=== PATIENT | female | born 1945 | race Hispanic/Latino ===

== ENCOUNTER 2018-03-17 13:55 | Outpatient (CLI) | payer MEDICARE, MEDICAID | END 2018-03-17 13:56 | disposition home or self-care (01) | LOC: BICMAMMO 13:55 | PROVIDERS: ATTEND Family Medicine | DX: Z12.31 Encounter for screening mammogram for malignant neoplasm of breast (principal); R92.1 Mammographic calcification found on diagnostic imaging of breast | CPT/HCPCS: 77063; 77067 ==

== ENCOUNTER 2019-03-21 10:14 | Outpatient (CLI) | payer MEDICARE, MEDICAID ==
--- NOTE | 2019-03-21 11:39 | MMO ---
Bilateral MAMMO Bilat Screen [facility]. CLINICAL HISTORY: Patient is 73 years old and is seen for screening. The patient has no family history of breast cancer. The patient has no personal history of cancer. VIEWS: The views performed were: bilateral craniocaudal with tomosynthesis and bilateral mediolateral oblique with tomosynthesis. FILMS COMPARED: The present examination has been compared to prior imaging studies performed at [facility] on 10/12/2012, 09/05/2015, 01/27/2017 and 03/17/2018. MAMMOGRAM FINDINGS: There are scattered fibroglandular densities. Benign calcifications are noted bilaterally. There are no suspicious masses, suspicious calcifications, or new areas of architectural distortion. IMPRESSION: THERE IS NO MAMMOGRAPHIC EVIDENCE OF MALIGNANCY. A ROUTINE FOLLOW-UP MAMMOGRAM IN 1 YEAR IS RECOMMENDED. THE RESULTS OF THIS EXAM WERE SENT TO THE PATIENT. ACR BI-RADS Category 2 - Benign finding MAMMOGRAPHY NOTE: 1. A negative mammogram report should not delay a biopsy if a dominant of clinically suspicious mass is present. 2. Approximately 10% to 15% of breast cancers are not detected by mammography. 3. Adenosis and dense breasts may obscure an underlying neoplasm. Reported by: TERRANCE VERMA MD Electonically Signed: [id number]
== END 2019-03-21 10:15 | disposition home or self-care (01) ==
LOC: BICMAMMO 10:14
PROVIDERS: ATTEND Family Medicine
DX: Z12.31 Encounter for screening mammogram for malignant neoplasm of breast (principal)
CPT/HCPCS: 77063; 77067

== ENCOUNTER 2019-07-25 20:09 | Inpatient (IN) | payer MEDICARE, MEDICAID ==
[2019-07-25 21:34] LABS: #Basophils 0.1 thou/uL (0.0-0.2); #Eosinphils 0.3 thou/uL (0.0-0.7); #Lymphocytes 1.8 thou/uL (1.20-3.40); #Monocytes 0.8 thou/uL (0.11-0.59); #Neutrophils 8.9 thou/uL (1.40-6.50); %Basophils 0.7 % (0.0-1.0); %Eosinophils 2.3 % (0.0-10.0); %Monocytes 6.5 % (0.0-10.0); %Neutrophils 75.5 % (42.0-75.0); Hemoglobin 12.3 g/dL (12.0-16.0); Mean Corpuscular HGB CONC 33.3 g/dL (32.0-36.0); Mean Corpuscular Hemoglobin 29.8 pg (27.0-31.0); Mean Corpuscular Volume 89.5 fL (78.0-98.0); Mean Platelet Volume 8.9 fL (7.4-10.4); Platelet Count 216 thou/uL (130-400); Red Blood Cell (RBC) Count 4.12 mill/uL (4.20-5.40); White Blood Cell (WBC) Count 11.7 thou/uL (4.8-10.8)
--- NOTE | 2019-07-25 21:47 | CT ---
CT HEAD WITHOUT IV CONTRAST COMPARISON: None HISTORY: Headache. TECHNIQUE: Axial CT imaging at 5 mm intervals from vertex through skull base without contrast FINDINGS: Minimal areas of diminished attenuation are seen in the periventricular white matter which are nonspe cific but likely reflective of mild chronic small vessel ischemic changes. There is no evidence of an acute infarction, hemorrhage, mass effect, or midline shift. The ventricular system is normal in s ize, shape, and position. Visualized paranasal sinuses are clear. Osseous structures appear intact. IMPRESSION: 1. No acute intracranial abnormality demonstrated. 2. Mild chronic small vessel ischemic changes.
[2019-07-25 22:02] LABS: ALT (SGPT) 10 U/L (8-55); AST (SGOT) 28 U/L (5-34); Albumin 3.8 g/dL (3.4-4.8); Alkaline Phosphatase 85 U/L (40-110); Anion Gap 12 mmol/L (10-20); BUN (Urea Nitrogen) 15 mg/dL (9.8-20.1); Bilirubin, Total 0.4 mg/dL (0.2-1.2); Calc. Creatinine Clearance 0 mL/min (70-130); Calcium 9.1 mg/dL (7.8-10.44); Carbon Dioxide 26 mmol/L (23-31); Chloride 105 mmol/L (98-107); Estimated GFR-MDRD 49; Globulin 3.2 g/dL (2.4-3.5); Glucose 122 mg/dL (83-110); Potassium 4.9 mmol/L (3.5-5.1); Sodium 138 mmol/L (136-145)
[2019-07-25] MEDS ORDERED: Labetalol HCl 100 MG/20 ML VIAL ONE (22:21)
[2019-07-25] MEDS ORDERED: Acetaminophen 325 MG TAB PO PRN (23:11)
[2019-07-25] MEDS ORDERED: Ondansetron ODT 4 MG TAB PO PRN (23:11)
[2019-07-25] MEDS ORDERED: Labetalol HCl 100 MG/20 ML VIAL SLOW IVP PRN (23:14)
[2019-07-25] MEDS ORDERED: Aspirin Chewable 81 MG TAB ONE (23:19)
[2019-07-25] MEDS ORDERED: Zolpidem Tartrate 5 MG TAB PO PRN (23:26)
--- NOTE | 2019-07-25 23:46 | HP ---
CHIEF COMPLAINT: Elevated blood pressure and headache. HISTORY OF PRESENT ILLNESS: This patient is a 73-year-old female who follows with Dr. Tenzin Jacinto. The patient has longstanding history of hypertension. She reported on Wednesday, she experienced some right arm pain transiently that resolved. At that time, she did not check her blood pressure. However, today she reported having significant throbbing type headache. She called her daughter, ultimately checked her blood pressure and it was significantly elevated and she subsequently came to the emergency department where she has continued to have elevated blood pressure readings. She took aspirin and her evening dose of carvedilol around 0600 hours this evening when she noted the elevated blood pressure, not feeling well. States she has never had any issues like this before. REVIEW OF SYSTEMS: She denies nausea, vomiting, lightheadedness, chest pains, blurred vision, or shortness of breath. She does report some discomfort in the posterior left thigh area, which has been going on this afternoon. Otherwise, all systems reviewed were negative except for the pertinent positives mentioned in the history of present illness. PAST MEDICAL HISTORY: Notable for hypertension, hyperlipidemia, insomnia, gout, GERD, and the patient also has some type of inhaler nasal spray, but says she did not have allergic rhinitis or asthma, believes it was for postnasal drip. PAST SURGICAL HISTORY: Bilateral knee replacements and wisdom tooth extraction. FAMILY HISTORY: Mother had some type of abdominal cancer. Her father had hypertension and when she was young. She thinks he may have had some sepsis related to infection in his legs, but she is not sure. SOCIAL HISTORY: Denies alcohol, tobacco, or drugs. She is a 14 year . 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 HOME MEDICATIONS: She takes carvedilol 12.5 mg b.i.d. She also takes something for cholesterol, Ambien for sleep, something for gout and something for reflux, but she does not know the names of these medications. ALLERGIES: NONE. PHYSICAL EXAMINATION: VITAL SIGNS: Most recent documented BP 199/106, pulse 81, respirations 20, O2 saturation 94% on room air while examining the patient. Rechecked it, it is slightly higher than these numbers. GENERAL APPEARANCE: Awake, alert, pleasant, cooperative, in no distress. HEENT: CHRISTINA. No OP lesions. NECK: Supple and symmetric. HEART: Regular rate and rhythm. LUNGS: Clear bilaterally with no wheezes or rales. ABDOMEN: Soft, nontender, and nondistended. Positive bowel sounds. No masses. No organomegaly. EXTREMITIES: Trace edema of the ankles, otherwise no significant cyanosis, clubbing, or edema. PSYCH: Normal affect and behavior. NEURO: The patient appears to be cognitively intact. Her cranial nerves are intact. She has spontaneous movement in all extremities with no focal deficits. LABORATORY DATA: White count 11.7, hemoglobin 12.3, platelets 216. Sodium 138, potassium 4.91, chloride 105, CO2 of 26, BUN 15, creatinine is 1.1, glucose 122, calcium 9.1, AST 28, ALT 10. Troponin is less than 0.013. Albumin 3.2. CT of the brain is negative except for some mild chronic small vessel disease. IMPRESSION AND PLAN: 1. Hypertensive emergency. Given the actual values and the symptomatic headache and the pain in the arm, she has had labetalol and nitroglycerin paste ordered in the emergency department and that is anticipated to occur shortly once we get her blood pressure under better control in the emergency department. Anticipate admitting her to telemetry. We will continue with nitroglycerin paste and p.r.n. labetalol and continue with her home Coreg. Depending on the clinical course, may consider upping that dose a little bit. The patient reports that she had a stress test and cardiac workup this year with Dr. Jacinto that was negative. About a month ago, she was having some cough. At that time, had EKG and labs done, all of which were normal. Therefore, I do not anticipate a significant cardiac workup as long as her blood pressure will stabilize. There does not appear to be any specific underlying source of the spike in the blood pressure. 2. History of hyperlipidemia. We will start her medications once they are known. 3. Gout. We will resume home medications once known. 4. Insomnia. We will go ahead and give her a dose or order some p.r.n. Ambien for her at night as that is what she takes at home. 5. Gastroesophageal reflux disease. Keep her on a PPI while she is here. Job ID: [id number]
[2019-07-25] MEDS ORDERED: Nitroglycerin 2% Ointment 1 INCH/1 GM Packet ONE (23:58)
[2019-07-26 01:00] LABS: Troponin I Less than 0.010 ng/mL (< 0.028)
[2019-07-26 02:15] VITALS: BMI 38.2
[2019-07-26 03:45] LABS: #Eosinphils 0.3 thou/uL (0.0-0.7); #Lymphocytes 1.7 thou/uL (1.20-3.40); #Monocytes 0.8 thou/uL (0.11-0.59); #Neutrophils 7.7 thou/uL (1.40-6.50); %Basophils 0.3 % (0.0-1.0); %Eosinophils 2.6 % (0.0-10.0); %Lymphocytes 16.3 % (21.0-51.0); %Monocytes 7.4 % (0.0-10.0); %Neutrophils 73.4 % (42.0-75.0); Hemoglobin 11.2 g/dL (12.0-16.0); Mean Corpuscular HGB CONC 33.4 g/dL (32.0-36.0); Mean Corpuscular Hemoglobin 29.8 pg (27.0-31.0); Mean Corpuscular Volume 89.1 fL (78.0-98.0); Mean Platelet Volume 8.5 fL (7.4-10.4); Platelet Count 182 thou/uL (130-400); RBC Distribution Width 12.9 % (11.5-14.5); Red Blood Cell (RBC) Count 3.76 mill/uL (4.20-5.40); White Blood Cell (WBC) Count 10.5 thou/uL (4.8-10.8)
[2019-07-26 04:04] LABS: Anion Gap 12 mmol/L (10-20); BUN (Urea Nitrogen) 14 mg/dL (9.8-20.1); Calc. Creatinine Clearance 76 mL/min (70-130); Calcium 8.8 mg/dL (7.8-10.44); Carbon Dioxide 27 mmol/L (23-31); Chloride 106 mmol/L (98-107); Estimated GFR-MDRD 55; Glucose 99 mg/dL (83-110); Potassium 3.6 mmol/L (3.5-5.1); Sodium 141 mmol/L (136-145)
[2019-07-26 04:11] LABS: Troponin I Less than 0.010 ng/mL (< 0.028)
[2019-07-26] MEDS ORDERED: Carvedilol 6.25 MG TAB PO SCH (08:00)
[2019-07-26 08:25] VITALS: TEMP 97.4
[2019-07-26] MEDS ORDERED: Enoxaparin Sodium 40 MG/0.4 ML SYRINGE SC SCH (09:00)
[2019-07-26] MEDS ORDERED: FLU VACC TS2019-20(65YR UP)/PF 180 MCG/0.5 ML SYRINGE IM ONE (09:00)
[2019-07-26] MEDS ORDERED: Nitroglycerin 2% Ointment 1 INCH/1 GM Packet TOP SCH (09:00)
[2019-07-26] MEDS ORDERED: Prevnar 13-Val Conj/PF 0.5 ML SYRINGE IM ONE (09:00)
[2019-07-26 14:07] VITALS: BP 149/63
--- NOTE | 2019-07-26 16:39 | DIS ---
DATE OF ADMISSION: 07/25/2019 DATE OF DISCHARGE: 07/26/2019 DISCHARGE DIAGNOSES: Hypertensive urgency, anemia. SECONDARY DISCHARGE DIAGNOSES: Gout, gastroesophageal reflux disease, hyperlipidemia. CONSULTATIONS: None. PROCEDURES: None. BRIEF HISTORY OF PRESENT ILLNESS: This is a 73-year-old female who presented to the emergency room with some right arm pain that transiently resolved. The patient also reported severe headache, and whenever she checked her blood pressure, it was noted to be elevated. On arrival to the emergency room, her blood pressure was 180/77. The patient was given 20 mg of IV labetalol, nitroglycerin paste, aspirin with improvement in her blood pressure. The patient had an EKG, which showed normal sinus rhythm. Labs showed a white count of 11.7. Initial troponin was negative. The patient had a CT scan of her head, which was normal. The patient was admitted for further workup. HOSPITAL COURSE: Hypertensive urgency: The patient reports compliant with her coreg 6.125 mg bid daily. Her coreg was increased to 12.5 mg twice daily. With this, her blood pressure improved to systolic of 112 to 130. The patient denied any headaches, chest pain, shortness of breath on the day of discharge. Three sets of troponins were normal. The patient states that she sometimes eat more salt than she should and was advised on reducing her salt intake. The patient will be discharged and we should follow up with her PCP in a week for further reassessment of her blood pressure. Anemia: The patient had hemoglobin of 11.2 on 07/26. Her hemoglobin was normal , however, the day before. This may just be iatrogenic from phlebotomy. The patient to have her CBC repeated as an outpatient and consider anemia workup as an outpatient. The patient states she had a colonoscopy in the past, which was normal. Leukocytosis: The patient had a white blood cell count of 11.7 on 07/25, which resolved to 10.5 on the day of discharge. The patient denied any fevers or chills. DISCHARGE PHYSICAL EXAMINATION: VITAL SIGNS: Temperature 97.4, heart rate 67, respiratory rate 18, O2 saturations 96% on room air, blood pressure 149/63. GENERAL: The patient is alert, awake, and oriented x3. CVS: Regular rate and rhythm with no murmurs, rubs, or gallops. LUNGS: Clear to auscultation bilaterally. ABDOMEN: Positive bowel sounds. Soft, nontender, nondistended. EXTREMITIES: No edema. PERTINENT LABORATORY DATA: CBC on 07/25 : white count of 11.7, which improved to 10.5 on 07/26; hemoglobin was 12.3, which dropped to 11.2 on 07/26. Rest of CBC unremarkable. BMP 07/26: normal. LFTS: were normal. Troponin-I : 0.013, 0.010, 0.010. PERTINENT IMAGING STUDIES: CT Brain : no acute disease. Mild chronic small-vessel ischemic changes. DISCHARGE CONDITION: Stable. DISPOSITION: Home. ACTIVITY: As tolerated. DIET: Heart healthy diet. DISCHARGE INSTRUCTIONS: The patient should follow up with PCP in a week and have her blood pressure re-evaluated for further adjustment. She should also have a repeat CBC to see if her anemia is still persistent. DISCHARGE MEDICATIONS: 1. Coreg 12.5 mg p.o. b.i.d. 2. Ropinirole 0.5 mg one tablet p.o. q.p.m. p.r.n. 3. Pravastatin 20 mg p.o. daily. 4. Allopurinol 300 mg p.o. daily. Job ID: [id number] [facility]
== END 2019-07-26 15:25 | disposition home or self-care (01) | DRG 305 ==
LOC: ERS 20:09 → 2NO 23:12
PROVIDERS: ADMIT Internal Medicine; ATTEND Internal Medicine
DX: I16.0 Hypertensive urgency (principal); Z66 Do not resuscitate; D64.9 Anemia, unspecified; M10.9 Gout, unspecified; K21.9 Gastro-esophageal reflux disease without esophagitis; I10 Essential (primary) hypertension; E78.5 Hyperlipidemia, unspecified; D72.829 Elevated white blood cell count, unspecified; Z96.653 Presence of artificial knee joint, bilateral; G47.00 Insomnia, unspecified; Z79.899 Other long term (current) drug therapy
CPT/HCPCS: 36415; 70450; 80048; 80053; 84484; 85025; 90471; 90662; 90670; 93005; G0008; G0009; J1650

== ENCOUNTER 2019-08-31 19:48 | Emergency (ER) | payer MEDICARE, MEDICAID ==
[2019-08-31] MEDS ORDERED: hydrOXYzine 25 MG TAB ONE (22:59)
== END 2019-08-31 23:53 | disposition home or self-care (01) ==
LOC: ERS 19:48
DX: R22.0 Localized swelling, mass and lump, head (principal); R22.1 Localized swelling, mass and lump, neck; T46.1X5A Adverse effect of calcium-channel blockers, initial encounter; T46.5X5A Adverse effect of other antihypertensive drugs, initial encounter; I10 Essential (primary) hypertension; Z79.899 Other long term (current) drug therapy
CPT/HCPCS: 99283

== ENCOUNTER 2019-12-17 13:56 | Emergency (ER) | payer MEDICARE, MEDICAID ==
[2019-12-17] MEDS ORDERED: HYDROcodone/Acetaminophen 5/325 mg Tablet ONE (14:40)
[2019-12-17] MEDS ORDERED: Ketorolac Tromethamine 30 MG/ML VIAL ONE (14:41)
[2019-12-17] MEDS ORDERED: Dexamethasone 10 MG/ML VIAL ONE (14:41)
[2019-12-17] MEDS ORDERED: Cephalexin 250 MG CAP ONE ×2 (14:41→14:43)
== END 2019-12-17 16:11 | disposition home or self-care (01) ==
LOC: ERS 13:56
DX: M54.40 Lumbago with sciatica, unspecified side (principal); I10 Essential (primary) hypertension; Z79.899 Other long term (current) drug therapy
CPT/HCPCS: 96372; 99283; J1100; J1885

== ENCOUNTER 2020-01-09 17:39 | Emergency (ER) | payer MEDICARE, MEDICAID ==
--- NOTE | 2020-01-11 16:42 | CT ---
CT HEAD WITHOUT CONTRAST: 01/11/20 INDICATIONS: Mental status change. COMPARISON: Comparison made to head CT 07/25/19. FINDINGS: The ventricles have normal size and position. Mild chronic ischemic white matter change is again seen most pronounced adjacent to the anterior horn on the right. This is stable. There is no evidence of intracranial hemorrhage, infarct, or mass. Sinuses and mastoids appear clear. IMPRESSION: No acute process. Stable findings from prior exam. POS: AGW
--- NOTE | 2020-01-11 18:27 | RAD ---
AP CHEST: 01/11/20 HISTORY: Shortness of breath and mental status change. COMPARISON: PA and lateral chest of 11/30/19. FINDINGS: Evidence of new left basilar opacity which may represent atelectasis or infiltrate. The heart size is upper normal and stable. The mediastinum appears prominent; however, this is accentuated by this pro jection and there is slight rotation. Mediastinum appeared normal on the PA view of 11/30/19. Lungs otherwise clear. IMPRESSION: Evidence of left lower extremity infiltrate or atelectasis. Suboptimal evaluation on portable exam. R ecommend upright PA and lateral views. POS: AGW
== END 2020-01-09 19:28 | disposition home or self-care (01) ==
LOC: ERS 17:39
DX: M54.31 Sciatica, right side (principal); B02.29 Other postherpetic nervous system involvement; I10 Essential (primary) hypertension

== ENCOUNTER 2020-01-11 12:55 | Observation (INO) | payer MEDICARE, MEDICAID, OTHER ==
[2020-01-11 14:09] LABS: #Basophils 0.1 thou/uL (0.0-0.2); #Eosinphils 0.1 thou/uL (0.0-0.7); #Lymphocytes 1.4 thou/uL (1.20-3.40); #Monocytes 0.7 thou/uL (0.11-0.59); #Neutrophils 6.9 thou/uL (1.40-6.50); %Basophils 0.8 % (0.0-1.0); %Eosinophils 1.6 % (0.0-10.0); %Lymphocytes 15.4 % (21.0-51.0); %Monocytes 7.7 % (0.0-10.0); %Neutrophils 74.6 % (42.0-75.0); Hemoglobin 12.6 g/dL (12.0-16.0); Mean Corpuscular HGB CONC 32.8 g/dL (32.0-36.0); Mean Corpuscular Hemoglobin 29.1 pg (27.0-31.0); Mean Corpuscular Volume 88.6 fL (78.0-98.0); Mean Platelet Volume 7.9 fL (7.4-10.4); Platelet Count 214 thou/uL (130-400); RBC Distribution Width 13.4 % (11.5-14.5); Red Blood Cell (RBC) Count 4.34 mill/uL (4.20-5.40); White Blood Cell (WBC) Count 9.2 thou/uL (4.8-10.8)
[2020-01-11 14:21] LABS: Bilirubin Negative (Negative); Blood, Urine Negative (Negative); Clarity Clear (Clear); Glucose, Urine (Dipstick) Normal (Negative); Leukocyte 25 Leu/uL (Negative); Nitrite Negative (Negative); Protein, Urine (Dipstick) Negative (Neg-Trace); RBC/HPF 0-3 HPF (0-3); Squamous Epithelial 0-3 HPF (0-3); Urobilinogen Normal mg/dL (Less than 2); WBC/HPF 0-3 HPF (0-3)
[2020-01-11 14:22] LABS: Bacteria/HPF 1+ HPF (None Seen)
[2020-01-11 14:30] LABS: ALT (SGPT) 15 U/L (8-55); AST (SGOT) 18 U/L (5-34); Albumin 4.2 g/dL (3.4-4.8); Alkaline Phosphatase 88 U/L (40-110); Anion Gap 15 mmol/L (10-20); BUN (Urea Nitrogen) 12 mg/dL (9.8-20.1); Bilirubin, Total 0.6 mg/dL (0.2-1.2); Calc. Creatinine Clearance 0 mL/min (70-130); Calcium 9.7 mg/dL (7.8-10.44); Carbon Dioxide 23 mmol/L (23-31); Chloride 106 mmol/L (98-107); Estimated GFR-MDRD 51; Globulin 3.1 g/dL (2.4-3.5); Glucose 134 mg/dL (83-110); Potassium 4.1 mmol/L (3.5-5.1); Protein, Total 7.3 g/dL (6.0-8.3); Sodium 140 mmol/L (136-145)
[2020-01-11] MEDS ORDERED: Lorazepam 2 MG/ML VIAL ONE (14:40)
[2020-01-11 15:28] LABS: Amphetamine Not Detected (NotDetected); Barbiturates Screen Not Detected (NotDetected); Benzodiazepine Screen Not Detected (NotDetected); Cocaine Metabolite Screen Not Detected (NotDetected); Medtox Control Line Valid? VALID (VALID); Medtox Reader # READER 1; Methadone Not Detected (NotDetected); Methamphetamine Not Detected (NotDetected); Opiate Screen Not Detected (NotDetected); Oxycodone Screen Not Detected (NotDetected); Phencyclidine (PCP) Not Detected (NotDetected); THC/Cannabinoid Screen Not Detected (NotDetected); Tricyclic Screen Not Detected (NotDetected)
[2020-01-11 16:13] LABS: Acetaminophen Less than 6.0 mcg/mL (10.0-30.0); Alcohol Less than 10 mg/dL (Less than 10); Salicylate Less than 8.0 mg/dL (15.0-30.0)
[2020-01-11 16:38] LABS: Lactic Acid 1.5 mmol/L (0.5-2.2)
[2020-01-11] MEDS ORDERED: cefTRIAXone\\ROCEPHIN 1 GM VIAL ONE ×2 (16:51→16:57)
[2020-01-11] MEDS ORDERED: Acetaminophen 500 MG TAB ONE (17:33)
[2020-01-11] MEDS ORDERED: Azithromycin 500 MG VIAL ONE (17:38)
[2020-01-11] MEDS ORDERED: Bisacodyl 5 MG TAB PO PRN (18:20)
[2020-01-11] MEDS ORDERED: Senokot S 8.6-50 MG TAB PO PRN (18:20)
[2020-01-11] MEDS ORDERED: Acetaminophen 325 MG TAB PO PRN (18:20)
[2020-01-11] MEDS ORDERED: Guaifenesin DM 100-10/5 ML UDCUP PO PRN (18:26)
[2020-01-11] MEDS ORDERED: Sodium Chloride 0.9% 1,000 ML IV SCH (18:30)
--- NOTE | 2020-01-11 19:33 | HP ---
PRIMARY CARE PHYSICIAN: Dr. Dion Montenegro. CHIEF COMPLAINT: Altered mental status. HISTORY OF PRESENT ILLNESS: The H and P was taken from the patient's daughter, Michelle Daniels at bedside, who is also the patient's MPOA. The patient is a 74- year-old female with a past medical history significant for shingles, who presents to the ER for the above complaint. The patient's daughter reports that she was seen in the ER on 01/08 and diagnosed with shingles. She was given baclofen, gabapentin, and lidocaine cream, which she started immediately after discharge. The patient's daughter reports the following morning, she called the patient by telephone and the patient appeared "off," stating that her speech was slightly mumbled. She did not think too much of it at that time. Nobody checked on the patient that evening, and then this morning, the patient's son found her mumbling and confused, crying hysterically. She was able to follow commands, but she did not appear in her right state of health. Her daughter reports that she had been taking the baclofen, gabapentin, and lidocaine cream as directed. She denies any other changes in the medications. She denies any recent trauma or falls. She denies any recent illness or fevers. She denies any recent surgeries. The patient has no psychiatric history. The patient was brought into the ER. In the ER, the patient's vital signs were taken. The patient was afebrile. She was found to be tachycardic at 127. EKG, sinus tach at 118. CT brain negative for any acute process. Chest x-ray was positive for left lower lobe infiltrates. Initial troponin was 0.019. Urine drug screen and serum drug screen were unremarkable. Lactic acid 1.5. UA 1+ bacteria, no leukocytes or or WBCs. The patient was given azithromycin and Rocephin IV piggyback, 1 L of normal saline, lorazepam IVP, and Tylenol 1 g. PAST MEDICAL HISTORY: 1. Shingles, diagnosed on 01/09/2020. 2. Hypertension. 3. Sciatica. 4. Hyperlipidemia. 5. Gout. 6. Restless legs syndrome. PAST SURGERY HISTORY: Bilateral knee replacement. SOCIAL HISTORY: The patient lives alone and performs all ADLs without assistance. She has no smoking, illicit drug use, or alcohol intake history. FAMILY HISTORY: Noncontributory to this case. ALLERGIES: THE PATIENT HAS NO KNOWN ALLERGIES. HOME MEDICATIONS: Unable to verify home medications at bedside with the patient 's daughter. REVIEW OF SYSTEMS: All other review of systems is negative unless otherwise noted in the HPI. PHYSICAL EXAMINATION: VITAL SIGNS: Temperature 99.3 oral, blood pressure 126/92, heart rate was 127, respirations 16, and 100% on room air. Pain, unable to give pain scale. CONSTITUTIONAL: The patient is tachycardic. Blood pressure stable. Respiratory rate increased. The patient appears uncomfortable. She is confused. She is able to follow commands. She is oriented to person. Her speech is mumbled. HEAD: Atraumatic and normocephalic. EYES: Pupils are equal, round, and reactive to light. Extraocular muscles are intact. Sclerae are nonicteric. ENT: Nose, normal. No nasal deformities. No bleeding from the nares. Pharynx was normal. Mucous membranes were moist. Uvula is midline. NECK: Full range of motion. Trachea, midline. No JVD. RESPIRATORY/CHEST: Breath sounds were clear bilaterally. No wheezes. No rhonchi. No rales. CARDIOVASCULAR: Sinus tachycardia. No murmurs, rubs, or gallops. ABDOMEN: Female, soft, nontender. Active bowel sounds. No guarding. No rigidity. No abdominal bruit auscultated. BACK: Full range of motion. No central spinous tenderness on palpation. No costovertebral tenderness. UPPER EXTREMITIES: Bilaterally, full range of motion. Strength was normal. No swelling. No erythema. Palpable radial pulses. Brisk cap refill. LOWER EXTREMITIES: Bilateral lower extremities, no swelling, no erythema. The patient has had some what appears to be crusting vesicular lesions to the right lower extremity, more significant in the L2 through S1 dermatome. NEUROLOGIC: No focal neurological deficit. The patient is able to follow commands. The patient is oriented to person and mildly lethargic on examination. SKIN: Warm, dry, and intact. PSYCHIATRIC: The patient was oriented to person. Had a flat affect. Mildly agitated at times. LABS AND DIAGNOSTICS: EKG, sinus tach at 118, no ST elevations. Chest x-ray positive for left lower infiltrate. Troponin 0.019. Sodium 140, potassium 4.1, chloride 106, carbon dioxide 23, BUN 12, creatinine 1.06, GFR 51, glucose 134, lactic acid 1.5, bilirubin 0.6, AST 18, ALT 15, alkaline phosphatase 88. TSH was 1.0827. WBC is 9.2, hemoglobin 12.6, hematocrit 38.4, platelets . Urine had 1+ bacteria. Tox screen was unremarkable. COVID is pending. IMPRESSION AND PLAN: 1. Pneumonia. We will admit the patient to telemetry for observation status. Expected length of stay, less than 2 midnights. Upon exam, the patient was in no acute respiratory distress. She was on 2 L nasal cannula, SpO2 of 100%. Respirations were even and unlabored. She was lethargic on exam with some mumbled speech, but no focal deficits. CT brain was negative. She patient was given azithromycin and Rocephin in the ER. Lactic acid 1.5 and blood cultures are pending. We will continue azithromycin and Rocephin IV piggyback. We will continue symptomatic care as needed. COVID is pending. We will place on droplet precautions and we will check acute phase reactants for baseline. 2. Shingles. The patient was recently seen in the ER on 01/09/2020, diagnosed with shingles, was given prescription for gabapentin, baclofen, and Lidoderm cream. The following day, she was found to have mumbling speech and altered per family. Upon exam, lesions appear crusted. We will place the patient on contact precautions. We will hold baclofen and gabapentin for now. We will reassess medication administration as mentation improves. 3. Acute metabolic encephalopathy, likely related to shingles medication regimen. CT brain negative for acute process. UA 1+ bacteria, no leukocytes or WBCs, patient is asymptomatic. She was given 1mg ativan IVP in ER. We will hold her home shingles medications for now. We will perform neuro checks. Per the patient's daughter at bedside, the patient's mentation is improving from yesterday. 4. Hypertension. Unable to reconcile the patient's home medications. I will put in the nursing communication to reconcile home medications and we will restart when reconciled. 5. Hyperlipidemia. We will restart statin when home medications reconciled by nursing. 6. Restless legs syndrome. 7. Gout. Awaiting home medication reconciliation by nursing. 8. Lovenox for deep venous thrombosis prophylaxis. 9. Pepcid for gastrointestinal prophylaxis. 10. The patient is a full code. MPOA is Michelle Daniels, her daughter at [phone]. 11. Discussed the case with Dr. Roger. Job ID: [id number] MTDD
[2020-01-11] MEDS: Famotidine 20 MG TAB PO SCH (20:56)
[2020-01-11] MEDS ORDERED: Enoxaparin Sodium 40 MG/0.4 ML SYRINGE SC SCH (21:00)
[2020-01-11] MEDS ORDERED: rOPINIRole HCl 0.5 MG TAB PO SCH (22:15)
[2020-01-11] MEDS ORDERED: Zolpidem Tartrate 5 MG TAB PO SCH (22:15)
[2020-01-12] MEDS ORDERED: Gabapentin 300 MG CAP PO SCH (03:15)
[2020-01-12 05:01] LABS: #Eosinphils 0.5 thou/uL (0.0-0.7); #Lymphocytes 1.4 thou/uL (1.20-3.40); #Monocytes 0.7 thou/uL (0.11-0.59); #Neutrophils 4.9 thou/uL (1.40-6.50); %Basophils 0.5 % (0.0-1.0); %Eosinophils 6.9 % (0.0-10.0); %Lymphocytes 18.4 % (21.0-51.0); %Monocytes 8.7 % (0.0-10.0); %Neutrophils 65.5 % (42.0-75.0); Hemoglobin 13.1 g/dL (12.0-16.0); Mean Corpuscular HGB CONC 33.3 g/dL (32.0-36.0); Mean Corpuscular Hemoglobin 29.7 pg (27.0-31.0); Mean Corpuscular Volume 89.4 fL (78.0-98.0); Mean Platelet Volume 8.4 fL (7.4-10.4); Platelet Count 174 thou/uL (130-400); RBC Distribution Width 13.7 % (11.5-14.5); Red Blood Cell (RBC) Count 4.39 mill/uL (4.20-5.40); White Blood Cell (WBC) Count 7.5 thou/uL (4.8-10.8)
[2020-01-12 05:06] LABS: Anion Gap 15 mmol/L (10-20); BUN (Urea Nitrogen) 8 mg/dL (9.8-20.1); Calc. Creatinine Clearance 86 mL/min (70-130); Calcium 8.4 mg/dL (7.8-10.44); Carbon Dioxide 20 mmol/L (23-31); Chloride 113 mmol/L (98-107); Estimated GFR-MDRD 66; Glucose 111 mg/dL (83-110); Potassium 5.1 mmol/L (3.5-5.1); Sodium 143 mmol/L (136-145)
[2020-01-12] MEDS ORDERED: Levothyroxine Sodium 25 MCG TAB PO SCH (06:00)
[2020-01-12] MEDS: Famotidine 20 MG TAB PO SCH (07:24)
[2020-01-12] MEDS ORDERED: Carvedilol 6.25 MG TAB PO SCH (08:00)
[2020-01-12] MEDS ORDERED: Amlodipine 5 MG TAB PO SCH (09:00)
[2020-01-12] MEDS ORDERED: Prevnar 13-Val Conj/PF 0.5 ML SYRINGE IM ONE (09:00)
[2020-01-12] MEDS ORDERED: Gabapentin 100 MG CAP PO SCH (09:00)
[2020-01-12] MEDS ORDERED: Allopurinol 300 MG TAB PO SCH (09:00)
[2020-01-12] MEDS ORDERED: Fluticasone Propionate Nasal Spray 16 gm Bottle NASAL SCH (09:00)
[2020-01-12] MEDS ORDERED: Saccharomyces boulardii 250 MG CAP PO SCH (09:00)
--- NOTE | 2020-01-12 09:57 | PDOC.HOSPP ---
- Subjective Encounter Date: 01/12/20 Encounter Time: 09:54 Subjective: Ms. Acosta was seen today in follow-up of encephalopathy. She was a bit drowsy when I first came in the room, but after talking a while she improved. She began crying again, and she admitted whe has been under some stress. Her daughter called while I was in the room, and we discussed the patient. It turns out she has been very isolated due to the COVID pandemic. She usually has visit from family every day, and for long periods of time. She has not had exposure to her grandchildren during this pandemic, which is quite unusual as well. - Objective Vital Signs & Weight: Vital Signs (12 hours) Temp Pulse Resp BP BP Pulse Ox 01/12/20 07:48 89 18 162/79 H 97 01/12/20 03:30 97.9 F 98 18 174/91 H 98 01/12/20 00:30 96 18 132/70 96 Weight Weight 207 lb 14.4 oz Result Diagrams: 01/12/20 04:48 01/12/20 04:48 Hospitalist ROS - Medication Medications: Active Medications Generic Name Dose Route Start Last Admin Trade Name Freq PRN Reason Stop Dose Admin Acetaminophen 650 mg 01/11/20 18:20 01/12/20 01:13 Tylenol PO 650 mg Q4H PRN Administration Headache/Fever/Mild Pain (1-3) Enoxaparin Sodium 40 mg 01/11/20 21:00 01/11/20 20:57 Lovenox SC 40 mg 2100 ROBERT Administration Famotidine 20 mg 01/11/20 21:00 01/12/20 07:24 Pepcid PO 20 mg BID ROBERT Administration Sodium Chloride 1,000 mls @ 50 mls/hr 01/11/20 18:30 01/11/20 20:57 Normal Saline 0.9% IV 1,000 mls .Q20H ROBERT Administration Levothyroxine Sodium 25 mcg 01/12/20 06:00 01/12/20 06:04 Synthroid PO 25 mcg 0600 ROBERT Administration Saccharomyces Boulardii 250 mg 01/12/20 09:00 01/12/20 07:24 Florastor PO 250 mg DAILY ROBERT Administration - Exam Eye: PERRL, anicteric sclera Heart: RRR, no murmur, no gallops, no rubs, normal peripheral pulses Respiratory: CTAB, no wheezes, no rales, no ronchi, normal chest expansion, no tachypnea, normal percussion Gastrointestinal: soft, non-tender, non-distended, normal bowel sounds Extremities: no cyanosis, no edema Hosp A/P (1) Toxic metabolic encephalopathy Code(s): G92 - TOXIC ENCEPHALOPATHY Status: Acute (2) Hypertension Code(s): I10 - ESSENTIAL (PRIMARY) HYPERTENSION Status: Chronic (3) Herpes zoster Code(s): B02.9 - ZOSTER WITHOUT COMPLICATIONS Status: Chronic - Plan * Toxic Metabolic encephalopathy- I suspect her symptoms are triggered by Gabapentin- she was given a dose last night, and I am told that prior to that she had started to become more clear. Will decrease the dose to 100mg twice a day * Mild depression/anxiety- I suspect she has some mild depression and anxiety as a result of social isolation. Will add a low dose Buspar * She does not clinically have pneumonia- i suspect the findings are more consistent with atelectasis * Will discontinue antibiotics * Await COVID screen. If this is negative, mal[place] she can be discharged home- this was discussed with the patient's daughter Michelle, who agrees with the plan * HTN- blood pressure is elevated- will re-start her home medications
[2020-01-12 11:59] VITALS: BP 139/86; TEMP 98.3
[2020-01-12 12:55] LABS: SARS-CoV-2 MS2 Positive; SARS-CoV-2 N Gene Negative; SARS-CoV-2 S Gene Negative; SARS-CoV-2 orf1ab Negative
[2020-01-12] MEDS ORDERED: Azithromycin 500 MG in Sodium Chloride 0.9% 250 ML 250 ML IVPB SCH (18:00)
[2020-01-12] MEDS ORDERED: cefTRIAXone\\ROCEPHIN 1 GM in Sodium Chloride 0.9% 100 ML IVPB SCH (18:00)
[2020-01-12] MEDS ORDERED: Zolpidem Tartrate 5 MG TAB PO SCH (21:00)
[2020-01-12] MEDS ORDERED: rOPINIRole HCl 0.5 MG TAB PO SCH (21:00)
[2020-01-12] MEDS ORDERED: busPIRone HCl 5 MG TAB PO SCH (21:00)
[2020-01-12] MEDS ORDERED: Simvastatin 5 MG TAB PO SCH (21:00)
--- NOTE | 2020-01-12 22:32 | DIS ---
DATE OF ADMISSION: 01/11/2020 DATE OF DISCHARGE: 01/12/2020 DISCHARGE DISPOSITION: Home. DISCHARGE DIAGNOSES: 1. Toxic metabolic encephalopathy. 2. Reactive depression and anxiety. 3. Hypertension. 4. Herpes zoster. 5. Hyperlipidemia. 6. Sciatica. 7. Gout. 8. Restless legs syndrome. DISCHARGE MEDICATIONS: Include: 1. Neurontin 100 mg p.o. b.i.d. 2. BuSpar 5 mg p.o. twice daily. 3. Zolpidem 10 mg at bedtime. 4. Valsartan 160 mg b.i.d. 5. Requip 0.5 mg q.p.m. 6. Pravachol 20 mg at bedtime. 7. Protonix 40 mg daily. 8. Levothyroxine 25 mcg p.o. daily. 9. Ibuprofen 800 mg p.o. t.i.d. 10. Breo Ellipta one inhalation daily. 11. Fluticasone 16 g intranasally daily. 12. Carvedilol 6.25 mg p.o. b.i.d. 13. Norvasc 5 mg p.o. daily. 14. Allopurinol 300 mg p.o. daily. 15. Tylenol 3 q.4 hours as needed. IMAGING DONE DURING THE HOSPITAL STAY: The patient had a CT scan of the brain, which was negative. CODE STATUS: Full code. ALLERGIES: NO KNOWN DRUG ALLERGIES. HOSPITAL COURSE: Ms. Acosta is a very pleasant 74-year-old female, who was admitted to the hospital due to altered mental status. The full details of which are outlined in the history and present illness. She was having difficulties with being lethargic and word-finding and crying. It is felt that she had a toxic metabolic encephalopathy due to gabapentin. The dose was reduced from 300 mg to 100. Also, she had some evidence of reactive depression. I had a chance to talk to her daughter over the phone and she told me ever since the carmichael virus pandemic, her mother has been socially isolated. It is just she and her . She was used to having family visiting daily for long periods of time, but now the visits have become more less limited. She is and she lives alone actually. She has been more or less socially isolated and they have noticed this and a change in her mood. For this reason, we will be placing the patient on low dose of BuSpar twice daily. She did have a COVID screen while in the hospital, which was negative and was subsequently discharged home to have close outpatient followup. Job ID: [id number]
--- NOTE | 2020-01-20 11:01 | EKG ---
Test Reason : Blood Pressure : / mmHG Vent. Rate : 138 BPM Atrial Rate : 144 BPM P-R Int : 000 ms QRS Dur : 070 ms QT Int : 316 ms P-R-T Axes : 000 030 068 degrees QTc Int : 478 ms Sinus tachycardia Otherwise normal ECG Confirmed by OSWALD DENIS DO ([id number]), editor farm journal LIZET CORADO ([id number] on 01/20/2020 11:00:31 AM Referred By: Confirmed By:OSWALD DENIS DO
== END 2020-01-12 14:58 | disposition home or self-care (01) ==
LOC: ERS 12:55 → 2SW 16:49
PROVIDERS: ADMIT Internal Medicine; ATTEND Internal Medicine
DX: G92 Toxic encephalopathy (principal); F32.9 Major depressive disorder, single episode, unspecified; F41.9 Anxiety disorder, unspecified; I10 Essential (primary) hypertension; B02.9 Zoster without complications; E78.5 Hyperlipidemia, unspecified; M54.30 Sciatica, unspecified side; M10.9 Gout, unspecified; G25.81 Restless legs syndrome; Z20.828 Contact with and (suspected) exposure to other viral communicable diseases; Z79.899 Other long term (current) drug therapy
CPT/HCPCS: 70450; 71045; 80048; 80306; 80307; 82728; 83605; 83735; 84484; 85025; 85379; 86140; 87040; 93005; 94760; 96361 ×3; 96365; 96367; 96372; 96375; 99285; G0378 ×3; U0003; 36415; 80053; 81003; 81015; 84443; 87635; J0456; J0696; J1650; J2060

== ENCOUNTER 2020-04-12 14:48 | Outpatient (CLI) | payer MEDICARE, MEDICAID, OTHER ==
[2020-04-13 14:15] LABS: SARS-CoV-2 MS2 Positive; SARS-CoV-2 N Gene Negative; SARS-CoV-2 S Gene Negative; SARS-CoV-2 by NAA Not Detected (NotDetected); SARS-CoV-2 orf1ab Negative
== END 2020-04-12 14:49 | disposition home or self-care (01) ==
LOC: LABSCS 14:48
PROVIDERS: ATTEND Otolaryngology Otolaryngic Allergy
DX: R05 Cough (principal); R13.13 Dysphagia, pharyngeal phase; Z20.828 Contact with and (suspected) exposure to other viral communicable diseases
CPT/HCPCS: 87635; U0003

== ENCOUNTER 2020-10-09 13:16 | Outpatient (CLI) | payer MEDICARE, MEDICAID | END 2020-10-09 13:17 | disposition home or self-care (01) | LOC: BICMAMMO 13:16 | PROVIDERS: ATTEND Family Medicine Sports Medicine | DX: Z12.31 Encounter for screening mammogram for malignant neoplasm of breast (principal) | CPT/HCPCS: 77063; 77067 ==

== ENCOUNTER 2020-10-17 08:56 | Outpatient (CLI) | payer MEDICARE, MEDICAID | END 2020-10-17 08:57 | disposition home or self-care (01) | LOC: BICULT 08:56 | PROVIDERS: ATTEND Internal Medicine Nephrology | DX: I12.9 Hypertensive chronic kidney disease with stage 1 through stage 4 chronic kidney disease, or unspecified chronic kidney disease (principal); N18.30 Chronic kidney disease, stage 3 unspecified | CPT/HCPCS: 76770; 93975 ==

== ENCOUNTER 2021-05-01 11:19 | Inpatient (IN) | payer MEDICARE, MEDICAID ==
[2021-05-01] MEDS ORDERED: ceFAZolin 2 GM/DEX 5% 100 ML BAG ONE (11:49)
[2021-05-01] MEDS ORDERED: Diltiazem 125 MG/25 ML ONE (11:49)
[2021-05-01] MEDS ORDERED: Azithromycin 500 MG VIAL ONE (11:49)
[2021-05-01] MEDS ORDERED: Acetaminophen 500 MG TAB ONE (11:49)
[2021-05-01 12:05] LABS: #Basophils 0.1 thou/uL (0.0-0.2); #Eosinphils 0.1 thou/uL (0.0-0.7); #Lymphocytes 1.6 thou/uL (1.20-3.40); #Neutrophils 16.9 thou/uL (1.40-6.50); %Basophils 0.4 % (0.0-1.0); %Eosinophils 0.5 % (0.0-10.0); %Lymphocytes 8.2 % (21.0-51.0); %Monocytes 5.2 % (0.0-10.0); %Neutrophils 85.6 % (42.0-75.0); Hemoglobin 13.5 g/dL (12.0-16.0); Mean Corpuscular HGB CONC 32.5 g/dL (32.0-36.0); Mean Corpuscular Hemoglobin 28.5 pg (27.0-31.0); Mean Corpuscular Volume 87.5 fL (78.0-98.0); Mean Platelet Volume 8.5 fL (7.4-10.4); Platelet Count 263 thou/uL (130-400); RBC Distribution Width 13.1 % (11.5-14.5); Red Blood Cell (RBC) Count 4.76 mill/uL (4.20-5.40); White Blood Cell (WBC) Count 19.7 thou/uL (4.8-10.8)
[2021-05-01] MEDS ORDERED: Cefepime 2 GM VIAL ONE (14:05)
[2021-05-01 14:36] LABS: Albumin 3.2 g/dL (3.4-4.8)
[2021-05-01 14:37] LABS: Chloride 109 mmol/L (98-107); Potassium 3.4 mmol/L (3.5-5.1); Sodium 136 mmol/L (136-145)
[2021-05-01 14:38] LABS: Calcium 7.3 mg/dL (7.8-10.44); Glucose 102 mg/dL (83-110)
[2021-05-01 14:39] LABS: Globulin 2.6 g/dL (2.4-3.5); Protein, Total 5.8 g/dL (5.8-8.1)
[2021-05-01 14:40] LABS: Anion Gap 10 mmol/L (10-20); Bilirubin, Total 0.8 mg/dL (0.2-1.2); Carbon Dioxide 20 mmol/L (23-31)
[2021-05-01 14:41] LABS: Alkaline Phosphatase 78 U/L (40-110)
[2021-05-01 14:42] LABS: Calc. Creatinine Clearance 0 mL/min (70-130)
[2021-05-01 14:43] LABS: BUN (Urea Nitrogen) 12 mg/dL (9.8-20.1)
[2021-05-01 14:44] LABS: ALT (SGPT) 8 U/L (8-55); AST (SGOT) 11 U/L (5-34)
[2021-05-01 14:44] LABS: SARS-CoV-2 NAA Rapid Test Not Detected (NotDetected)
[2021-05-01 14:45] LABS: CK (CPK) 45 U/L (29-168); Lipase 12 U/L (8-78)
[2021-05-01 15:14] LABS: Bilirubin Negative (Negative); Blood, Urine Negative (Negative); Clarity Clear (Clear); Glucose, Urine (Dipstick) Normal (Negative); Ketone, Urine Negative (Negative); Leukocyte Negative Leu/uL (Negative); Nitrite Negative (Negative); Protein, Urine (Dipstick) Negative (Neg-Trace); Specific Gravity, Urine 1.012 (1.002-1.036); Urobilinogen Normal mg/dL (Less than 2)
[2021-05-01] MEDS ORDERED: Azithromycin 500 MG in Sodium Chloride 0.9% 250 ML 250 ML IVPB SCH (17:15)
[2021-05-01] MEDS ORDERED: Sodium Chloride 0.9% 500 ML IV SCH ×2 (17:15→17:45)
[2021-05-01] MEDS ORDERED: Acetaminophen 500 MG TAB PO SCH (17:30)
[2021-05-01] MEDS ORDERED: Carvedilol 6.25 MG TAB PO SCH (17:30)
[2021-05-01 17:38] LABS: Troponin I Less than 0.010 ng/mL (< 0.028)
[2021-05-01 17:44] VITALS: BMI 39.4
[2021-05-01] MEDS ORDERED: Cefepime 2 GM in Sodium Chloride 0.9% 100 ML IVPB SCH (18:15)
[2021-05-01 20:25] LABS: Troponin I Less than 0.010 ng/mL (< 0.028)
[2021-05-01] MEDS ORDERED: Enoxaparin Sodium 100 MG/ML SYRINGE SC SCH (21:45)
[2021-05-01] MEDS ORDERED: Zolpidem Tartrate 5 MG TAB PO SCH (23:00)
[2021-05-01] MEDS ORDERED: Communication Order-Pharmacy FS ONE (23:30)
[2021-05-02] MEDS: Sodium Chloride 0.9% 1,000 ML IV SCH ×3 (01:05→21:47)
[2021-05-02] MEDS: Cefepime 2 GM in Sodium Chloride 0.9% 100 ML IVPB SCH ×2 (01:05→15:20)
[2021-05-02] MEDS: Acetaminophen 325 MG TAB PO PRN ×2 (01:08→12:04)
[2021-05-02 04:32] LABS: #Basophils 0.1 thou/uL (0.0-0.2); #Monocytes 1.5 thou/uL (0.11-0.59); #Neutrophils 14.6 thou/uL (1.40-6.50); %Basophils 0.4 % (0.0-1.0); %Eosinophils 0.3 % (0.0-10.0); %Lymphocytes 10.9 % (21.0-51.0); %Monocytes 8.3 % (0.0-10.0); %Neutrophils 80.1 % (42.0-75.0); Hemoglobin 11.1 g/dL (12.0-16.0); Mean Corpuscular HGB CONC 33.8 g/dL (32.0-36.0); Mean Corpuscular Hemoglobin 30.1 pg (27.0-31.0); Mean Corpuscular Volume 89.1 fL (78.0-98.0); Platelet Count 201 thou/uL (130-400); White Blood Cell (WBC) Count 18.2 thou/uL (4.8-10.8)
[2021-05-02 04:49] LABS: Anion Gap 10 mmol/L (10-20); BUN (Urea Nitrogen) 14 mg/dL (9.8-20.1); Calc. Creatinine Clearance 75 mL/min (70-130); Calcium 7.7 mg/dL (7.8-10.44); Carbon Dioxide 23 mmol/L (23-31); Chloride 109 mmol/L (98-107); Glucose 107 mg/dL (83-110); Potassium 3.4 mmol/L (3.5-5.1); Sodium 139 mmol/L (136-145)
[2021-05-02] MEDS ORDERED: Albuterol 200 PUFF (6.7GM INHALER) INH PRN (07:45)
[2021-05-02] MEDS ORDERED: Enoxaparin Sodium 100 MG/ML SYRINGE SC SCH (09:00)
[2021-05-02] MEDS ORDERED: Non-Formulary Item 1 EACH (Valsartan [Valsartan] 160 MG Tablet) PO SCH (09:00)
[2021-05-02] MEDS ORDERED: Allopurinol 300 MG TAB PO SCH (09:00)
[2021-05-02] MEDS: Levothyroxine Sodium 25 MCG TAB PO SCH (09:21)
[2021-05-02] MEDS: Allopurinol 300 MG TAB PO SCH (09:21)
[2021-05-02] MEDS: Gabapentin 100 MG CAP PO SCH ×2 (09:21→21:49)
[2021-05-02] MEDS: Amlodipine 5 MG TAB PO SCH (09:21)
[2021-05-02] MEDS: Valsartan 80 MG TAB PO SCH ×2 (09:21→21:48)
[2021-05-02] MEDS: Azithromycin 500 MG in Sodium Chloride 0.9% 250 ML 250 ML IVPB SCH (11:22)
[2021-05-02] MEDS ORDERED: Enoxaparin Sodium 40 MG/0.4 ML SYRINGE SC SCH (11:23)
[2021-05-02] MEDS ORDERED: Pravastatin Sodium 20 MG TAB PO SCH (21:00)
[2021-05-02] MEDS ORDERED: rOPINIRole HCl 0.5 MG TAB PO SCH (21:00)
[2021-05-02] MEDS: Enoxaparin Sodium 40 MG/0.4 ML SYRINGE SC SCH (21:47)
[2021-05-02] MEDS: Zolpidem Tartrate 5 MG TAB PO SCH (21:47)
[2021-05-02] MEDS: Simvastatin 10 MG TAB PO SCH (21:48)
[2021-05-02] MEDS: rOPINIRole HCl 0.5 MG TAB PO SCH (21:48)
[2021-05-03] MEDS ORDERED: Cefepime 2 GM VIAL ONE (01:48)
[2021-05-03] MEDS: Cefepime 2 GM in Sodium Chloride 0.9% 100 ML IVPB SCH ×2 (01:56→15:03)
[2021-05-03 05:02] LABS: #Eosinphils 0.3 thou/uL (0.0-0.7); #Lymphocytes 1.9 thou/uL (1.20-3.40); #Monocytes 1.1 thou/uL (0.11-0.59); #Neutrophils 12.6 thou/uL (1.40-6.50); %Basophils 0.1 % (0.0-1.0); %Eosinophils 2.2 % (0.0-10.0); %Lymphocytes 11.8 % (21.0-51.0); %Monocytes 7.1 % (0.0-10.0); %Neutrophils 78.8 % (42.0-75.0); Hemoglobin 10.7 g/dL (12.0-16.0); Mean Corpuscular HGB CONC 34.2 g/dL (32.0-36.0); Mean Corpuscular Hemoglobin 30.4 pg (27.0-31.0); Mean Corpuscular Volume 88.7 fL (78.0-98.0); Mean Platelet Volume 8.6 fL (7.4-10.4); Platelet Count 196 thou/uL (130-400); RBC Distribution Width 13.1 % (11.5-14.5); Red Blood Cell (RBC) Count 3.52 mill/uL (4.20-5.40)
[2021-05-03 05:24] LABS: ALT (SGPT) 10 U/L (8-55); AST (SGOT) 20 U/L (5-34); Albumin 3.1 g/dL (3.4-4.8); Alkaline Phosphatase 81 U/L (40-110); Anion Gap 8 mmol/L (10-20); BUN (Urea Nitrogen) 11 mg/dL (9.8-20.1); Bilirubin, Total 0.6 mg/dL (0.2-1.2); Calc. Creatinine Clearance 87 mL/min (70-130); Calcium 7.4 mg/dL (7.8-10.44); Carbon Dioxide 23 mmol/L (23-31); Chloride 111 mmol/L (98-107); Globulin 2.4 g/dL (2.4-3.5); Glucose 100 mg/dL (83-110); Potassium 3.3 mmol/L (3.5-5.1); Protein, Total 5.5 g/dL (5.8-8.1); Sodium 139 mmol/L (136-145)
[2021-05-03] MEDS: Enoxaparin Sodium 40 MG/0.4 ML SYRINGE SC SCH (08:38)
[2021-05-03] MEDS: Gabapentin 100 MG CAP PO SCH ×2 (08:38→20:48)
[2021-05-03] MEDS: Levothyroxine Sodium 25 MCG TAB PO SCH (08:38)
[2021-05-03] MEDS: Amlodipine 5 MG TAB PO SCH (08:38)
[2021-05-03] MEDS: Valsartan 80 MG TAB PO SCH (08:38)
[2021-05-03] MEDS: Allopurinol 300 MG TAB PO SCH (08:38)
[2021-05-03] MEDS: Sodium Chloride 0.9% 1,000 ML IV SCH ×2 (08:39→20:50)
[2021-05-03] MEDS: Azithromycin 500 MG in Sodium Chloride 0.9% 250 ML 250 ML IVPB SCH (11:33)
[2021-05-03] MEDS: Zolpidem Tartrate 5 MG TAB PO SCH (20:48)
[2021-05-03] MEDS: rOPINIRole HCl 0.5 MG TAB PO SCH (20:48)
[2021-05-03] MEDS: Simvastatin 10 MG TAB PO SCH (20:48)
[2021-05-03] MEDS ORDERED: Potassium Chloride 20 MEQ TAB PO SCH (22:00)
[2021-05-04] MEDS: Ampicillin/Sulbactam 3 GM in Sodium Chloride 0.9% 100 ML IVPB SCH ×4 (00:05→18:18)
[2021-05-04 04:37] LABS: #Basophils 0.1 thou/uL (0.0-0.2); #Eosinphils 0.5 thou/uL (0.0-0.7); #Lymphocytes 1.4 thou/uL (1.20-3.40); #Monocytes 0.6 thou/uL (0.11-0.59); #Neutrophils 7.1 thou/uL (1.40-6.50); %Basophils 0.5 % (0.0-1.0); %Eosinophils 5.6 % (0.0-10.0); %Lymphocytes 14.3 % (21.0-51.0); %Monocytes 6.5 % (0.0-10.0); %Neutrophils 73.1 % (42.0-75.0); Mean Corpuscular HGB CONC 33.5 g/dL (32.0-36.0); Mean Corpuscular Hemoglobin 29.6 pg (27.0-31.0); Mean Corpuscular Volume 88.6 fL (78.0-98.0); Mean Platelet Volume 8.5 fL (7.4-10.4); Platelet Count 203 thou/uL (130-400); RBC Distribution Width 12.9 % (11.5-14.5); Red Blood Cell (RBC) Count 3.72 mill/uL (4.20-5.40); White Blood Cell (WBC) Count 9.7 thou/uL (4.8-10.8)
[2021-05-04 04:59] LABS: Anion Gap 11 mmol/L (10-20); BUN (Urea Nitrogen) 7 mg/dL (9.8-20.1); Calc. Creatinine Clearance 88 mL/min (70-130); Calcium 7.7 mg/dL (7.8-10.44); Carbon Dioxide 24 mmol/L (23-31); Chloride 109 mmol/L (98-107); Glucose 97 mg/dL (83-110); Potassium 3.6 mmol/L (3.5-5.1); Sodium 140 mmol/L (136-145)
[2021-05-04] MEDS: Levothyroxine Sodium 25 MCG TAB PO SCH (08:59)
[2021-05-04] MEDS: Gabapentin 100 MG CAP PO SCH ×2 (08:59→20:12)
[2021-05-04] MEDS: Amlodipine 5 MG TAB PO SCH (08:59)
[2021-05-04] MEDS: Enoxaparin Sodium 40 MG/0.4 ML SYRINGE SC SCH (09:00)
[2021-05-04] MEDS ORDERED: Valsartan 80 MG TAB PO SCH (09:00)
[2021-05-04] MEDS: Allopurinol 300 MG TAB PO SCH (09:00)
[2021-05-04] MEDS: Azithromycin 500 MG in Sodium Chloride 0.9% 250 ML 250 ML IVPB SCH (11:42)
[2021-05-04] MEDS: rOPINIRole HCl 0.5 MG TAB PO SCH (20:12)
[2021-05-04] MEDS: Zolpidem Tartrate 5 MG TAB PO SCH (20:13)
[2021-05-04] MEDS: Simvastatin 10 MG TAB PO SCH (20:13)
[2021-05-05] MEDS: Ampicillin/Sulbactam 3 GM in Sodium Chloride 0.9% 100 ML IVPB SCH ×3 (00:29→13:55)
[2021-05-05 05:08] LABS: #Basophils 0.1 thou/uL (0.0-0.2); #Eosinphils 0.7 thou/uL (0.0-0.7); #Lymphocytes 1.8 thou/uL (1.20-3.40); #Monocytes 0.8 thou/uL (0.11-0.59); #Neutrophils 6.1 thou/uL (1.40-6.50); %Basophils 0.6 % (0.0-1.0); %Monocytes 8.1 % (0.0-10.0); %Neutrophils 65.2 % (42.0-75.0); Hemoglobin 10.7 g/dL (12.0-16.0); Mean Corpuscular HGB CONC 33.4 g/dL (32.0-36.0); Mean Corpuscular Hemoglobin 29.6 pg (27.0-31.0); Mean Corpuscular Volume 88.7 fL (78.0-98.0); Mean Platelet Volume 8.5 fL (7.4-10.4); Platelet Count 211 thou/uL (130-400); RBC Distribution Width 13.1 % (11.5-14.5); Red Blood Cell (RBC) Count 3.61 mill/uL (4.20-5.40); White Blood Cell (WBC) Count 9.4 thou/uL (4.8-10.8)
[2021-05-05] MEDS: Enoxaparin Sodium 40 MG/0.4 ML SYRINGE SC SCH (09:17)
[2021-05-05] MEDS: Gabapentin 100 MG CAP PO SCH (09:18)
[2021-05-05] MEDS: Levothyroxine Sodium 25 MCG TAB PO SCH (09:18)
[2021-05-05] MEDS: Amlodipine 5 MG TAB PO SCH (09:18)
[2021-05-05] MEDS: Allopurinol 300 MG TAB PO SCH (09:18)
[2021-05-05 12:18] VITALS: TEMP 98
[2021-05-05] MEDS: Azithromycin 500 MG in Sodium Chloride 0.9% 250 ML 250 ML IVPB SCH (13:56)
[2021-05-05] MEDS ORDERED: Azithromycin 250 MG TAB PO SCH ×2 (14:00→15:00)
[2021-05-05] MEDS ORDERED: Amoxicillin/Potassium Clav 875 MG TAB PO SCH ×2 (14:30→21:00)
[2021-05-05 16:38] VITALS: BP 127/68
== END 2021-05-05 18:26 | disposition home or self-care (01) | DRG 871 ==
LOC: ERS 11:19 → 2NO 16:32
PROVIDERS: ADMIT Internal Medicine; ATTEND Internal Medicine
DX: A41.9 Sepsis, unspecified organism (principal); J69.0 Pneumonitis due to inhalation of food and vomit; I48.92 Unspecified atrial flutter; I47.1 Supraventricular tachycardia; E66.9 Obesity, unspecified; Z20.822 Contact with and (suspected) exposure to COVID-19; I10 Essential (primary) hypertension; Z96.653 Presence of artificial knee joint, bilateral; E78.5 Hyperlipidemia, unspecified; M10.9 Gout, unspecified; K21.9 Gastro-esophageal reflux disease without esophagitis; Z68.39 Body mass index [BMI] 39.0-39.9, adult; Z88.5 Allergy status to narcotic agent; Z79.890 Hormone replacement therapy; Z79.899 Other long term (current) drug therapy; Z82.49 Family history of ischemic heart disease and other diseases of the circulatory system; Z82.3 Family history of stroke
CPT/HCPCS: 36415; 71045; 80048; 80053; 81003; 82550; 83605; 83690; 83880; 84443; 84484; 85025; 87040; 87086; 87804; 93005; 93306; 94760; 96365; 96366; 96367; J0295; J0456; J0692; J1650; J3490; J7050; U0002

== ENCOUNTER 2021-08-26 08:57 | Outpatient (CLI) | payer MEDICARE, MEDICAID | END 2021-08-26 08:58 | disposition home or self-care (01) | LOC: ULT 08:57 | PROVIDERS: ATTEND Internal Medicine | DX: R10.13 Epigastric pain (principal); R11.0 Nausea; N27.1 Small kidney, bilateral; R93.2 Abnormal findings on diagnostic imaging of liver and biliary tract | CPT/HCPCS: 76700; 78264; A9541 ==

== ENCOUNTER 2022-03-19 11:47 | Observation (INO) | payer OTHER, MEDICAID ==
[2022-03-19] MEDS ORDERED: Albuterol Sulfate 2.5 mg/3 ml Neb ONE (12:39)
[2022-03-19] MEDS ORDERED: Ipratropium Bromide 2.5 ml Neb ONE (12:39)
[2022-03-19 12:59] LABS: #Eosinphils 0.4 thou/uL (0.0-0.7); #Lymphocytes 2.1 thou/uL (1.20-3.40); #Monocytes 1.1 thou/uL (0.11-0.59); #Neutrophils 8.1 thou/uL (1.40-6.50); %Basophils 0.2 % (0.0-1.0); %Eosinophils 3.7 % (0.0-10.0); %Lymphocytes 17.5 % (21.0-51.0); %Neutrophils 69.5 % (42.0-75.0); Hemoglobin 12.1 g/dL (12.0-16.0); Mean Corpuscular HGB CONC 32.1 g/dL (32.0-36.0); Mean Corpuscular Volume 90.3 fL (78.0-98.0); Mean Platelet Volume 8.5 fL (7.4-10.4); Platelet Count 243 thou/uL (130-400); RBC Distribution Width 13.5 % (11.5-14.5); Red Blood Cell (RBC) Count 4.16 mill/uL (4.20-5.40); White Blood Cell (WBC) Count 11.7 thou/uL (4.8-10.8)
[2022-03-19 13:45] LABS: ALT (SGPT) 8 U/L (8-55); AST (SGOT) 16 U/L (5-34); Alkaline Phosphatase 106 U/L (40-110); Anion Gap 13 mmol/L (10-20); BUN (Urea Nitrogen) 16 mg/dL (9.8-20.1); Bilirubin, Total 0.6 mg/dL (0.2-1.2); Calc. Creatinine Clearance 0 mL/min (70-130); Calcium 8.8 mg/dL (7.8-10.44); Carbon Dioxide 26 mmol/L (23-31); Chloride 105 mmol/L (98-107); Estimated GFR 55; Globulin 3.1 g/dL (2.4-3.5); Glucose 74 mg/dL (83-110); Potassium 4.3 mmol/L (3.5-5.1); Protein, Total 7.1 g/dL (5.8-8.1); Sodium 140 mmol/L (136-145)
[2022-03-19] MEDS ORDERED: Ondansetron PF 4 MG/2 ML Vial IVP PRN (15:20)
[2022-03-19] MEDS ORDERED: Senokot S 8.6-50 MG TAB PO PRN (15:20)
[2022-03-19] MEDS ORDERED: Acetaminophen 325 MG TAB PO PRN (15:20)
[2022-03-19 15:28] LABS: Bacteria/HPF None Seen HPF (None Seen); Bilirubin Negative (Negative); Blood, Urine Negative (Negative); Clarity Clear (Clear); Glucose, Urine (Dipstick) Normal (Negative); Ketone, Urine Negative (Negative); Leukocyte 250 Leu/uL (Negative); Nitrite Negative (Negative); Protein, Urine (Dipstick) Negative (Neg-Trace); RBC/HPF 0-3 HPF (0-3); Specific Gravity, Urine 1.006 (1.002-1.036); Squamous Epithelial 0-3 HPF (0-3); Urobilinogen Normal mg/dL (Less than 2); pH, Urine 6.5 (5.0-9.0)
[2022-03-19] MEDS ORDERED: hydrALAZINE 20 MG/ML VIAL SLOW IVP PRN (16:04)
[2022-03-19 17:21] LABS: Troponin I Less than 0.010 ng/mL (< 0.028)
[2022-03-19] MEDS ORDERED: methylPREDNISolone Sod Succ/PF 125 MG/2 ML VIAL IVP SCH (18:00)
[2022-03-19 18:52] VITALS: BMI 37.5
[2022-03-19 19:43] LABS: Troponin I Less than 0.010 ng/mL (< 0.028)
[2022-03-19] MEDS ORDERED: Famotidine 20 MG TAB PO SCH ×2 (21:00→22:30)
[2022-03-19] MEDS ORDERED: Gabapentin 100 MG CAP PO PRN (21:54)
[2022-03-19] MEDS ORDERED: rOPINIRole HCl 0.5 MG TAB PO SCH (22:30)
[2022-03-19] MEDS ORDERED: Simvastatin 10 MG TAB PO SCH (22:30)
[2022-03-19] MEDS ORDERED: Valsartan 80 MG TAB PO SCH (22:30)
[2022-03-20] MEDS: methylPREDNISolone Sod Succ 40 MG VIAL IVP SCH ×4 (00:04→17:29)
[2022-03-20] MEDS: DULoxetine 30 MG CAP PO PRN ×2 (00:04→21:51)
[2022-03-20 04:36] LABS: #Lymphocytes 0.7 thou/uL (1.20-3.40); #Neutrophils 7.7 thou/uL (1.40-6.50); %Basophils 0.2 % (0.0-1.0); %Eosinophils 0.5 % (0.0-10.0); %Lymphocytes 7.8 % (21.0-51.0); %Monocytes 0.4 % (0.0-10.0); %Neutrophils 91.1 % (42.0-75.0); Hemoglobin 12.5 g/dL (12.0-16.0); Mean Corpuscular Hemoglobin 28.8 pg (27.0-31.0); Mean Platelet Volume 8.6 fL (7.4-10.4); Platelet Count 242 thou/uL (130-400); RBC Distribution Width 13.4 % (11.5-14.5); Red Blood Cell (RBC) Count 4.34 mill/uL (4.20-5.40); White Blood Cell (WBC) Count 8.5 thou/uL (4.8-10.8)
[2022-03-20 05:00] LABS: Anion Gap 15 mmol/L (10-20); BUN (Urea Nitrogen) 16 mg/dL (9.8-20.1); Calc. Creatinine Clearance 60 mL/min (70-130); Calcium 9.1 mg/dL (7.8-10.44); Carbon Dioxide 22 mmol/L (23-31); Cardiac Risk 2.8 (Less than 4.5); Chloride 102 mmol/L (98-107); Cholesterol 130 mg/dl (< 200 Desired); Estimated GFR 49; Glucose 298 mg/dL (83-110); HDL Cholesterol 46 mg/dL (>60 Neg Risk); LDL Cholesterol, Calculated 77 mg/dL; Potassium 4.1 mmol/L (3.5-5.1); Sodium 135 mmol/L (136-145); Triglycerides 35 mg/dL (Less than 150)
[2022-03-20] MEDS: Levothyroxine Sodium 25 MCG TAB PO SCH (06:04)
[2022-03-20] MEDS: Furosemide 40 MG/4 ML VIAL SLOW IVP SCH ×2 (06:08→14:01)
[2022-03-20] MEDS: Allopurinol 300 MG TAB PO SCH (08:18)
[2022-03-20] MEDS: Potassium Chloride 20 MEQ TAB PO SCH (08:18)
[2022-03-20] MEDS: Amlodipine 5 MG TAB PO SCH (08:19)
[2022-03-20] MEDS: guaiFENesin ER 600 MG TAB PO SCH ×2 (08:19→21:39)
[2022-03-20] MEDS: Valsartan 80 MG TAB PO SCH ×2 (08:20→21:39)
[2022-03-20] MEDS ORDERED: Electrolyte Replacement Protocol 1 EACH FS SCH (18:00)
[2022-03-20] MEDS ORDERED: rOPINIRole HCl 0.5 MG TAB PO SCH (21:00)
[2022-03-20] MEDS ORDERED: Famotidine 20 MG TAB PO SCH (21:00)
[2022-03-20] MEDS ORDERED: Simvastatin 10 MG TAB PO SCH (21:00)
[2022-03-20] MEDS ORDERED: methylPREDNISolone Sod Succ 40 MG VIAL IVP SCH (22:00)
[2022-03-21 05:42] LABS: Anion Gap 15 mmol/L (10-20); BUN (Urea Nitrogen) 28 mg/dL (9.8-20.1); Calc. Creatinine Clearance 55 mL/min (70-130); Calcium 9.1 mg/dL (7.8-10.44); Carbon Dioxide 25 mmol/L (23-31); Chloride 100 mmol/L (98-107); Estimated GFR 44; Glucose 199 mg/dL (83-110); Magnesium 2.1 mg/dL (1.6-2.6); Potassium 4.1 mmol/L (3.5-5.1); Sodium 136 mmol/L (136-145)
[2022-03-21] MEDS: Levothyroxine Sodium 25 MCG TAB PO SCH (06:14)
[2022-03-21] MEDS ORDERED: predniSONE 20 MG TAB PO SCH (08:00)
[2022-03-21] MEDS: Amlodipine 5 MG TAB PO SCH (08:15)
[2022-03-21] MEDS: Potassium Chloride 20 MEQ TAB PO SCH (08:15)
[2022-03-21] MEDS: Allopurinol 300 MG TAB PO SCH (08:15)
[2022-03-21] MEDS: guaiFENesin ER 600 MG TAB PO SCH (08:16)
[2022-03-21] MEDS: Valsartan 80 MG TAB PO SCH (08:16)
[2022-03-21] MEDS ORDERED: Furosemide 20 MG TAB PO SCH (09:00)
[2022-03-21] MEDS ORDERED: Furosemide 40 MG/4 ML VIAL SLOW IVP SCH (09:00)
[2022-03-21 11:56] VITALS: BP 138/84; TEMP 97.5
[2022-03-21 12:27] LABS: Potassium 4.2 mmol/L (3.5-5.1)
== END 2022-03-21 16:00 | disposition home or self-care (01) ==
LOC: ERS 11:47 → 2SW 18:20
PROVIDERS: ADMIT Internal Medicine; ATTEND Internal Medicine
DX: I11.0 Hypertensive heart disease with heart failure (principal); I50.33 Acute on chronic diastolic (congestive) heart failure; J96.01 Acute respiratory failure with hypoxia; J45.909 Unspecified asthma, uncomplicated; K21.9 Gastro-esophageal reflux disease without esophagitis; E03.9 Hypothyroidism, unspecified; E78.5 Hyperlipidemia, unspecified; Z20.822 Contact with and (suspected) exposure to COVID-19; I34.0 Nonrheumatic mitral (valve) insufficiency; N18.30 Chronic kidney disease, stage 3 unspecified; E87.1 Hypo-osmolality and hyponatremia; E66.9 Obesity, unspecified; Z68.37 Body mass index [BMI] 37.0-37.9, adult; Z79.890 Hormone replacement therapy; Z79.899 Other long term (current) drug therapy; Z88.5 Allergy status to narcotic agent
CPT/HCPCS: 71045; 80048 ×2; 80053; 80061; 83735; 83880; 84132; 84484 ×2; 85025 ×2; 93005; 93306; 94640 ×3; 96374; 96375; 96376 ×2; 99285; G0378 ×4; U0003; U0005; 36415; 36416; 81003; 81015; J1940; J2920; J2930; J7512; J7611; J7620

== ENCOUNTER 2022-04-16 12:38 | Outpatient (CLI) | payer OTHER, MEDICAID | END 2022-04-16 12:39 | disposition home or self-care (01) | LOC: BICRAD 12:38 | PROVIDERS: ATTEND Physician Assistant | DX: R05.3 Chronic cough (principal) | CPT/HCPCS: 71046 ==

== ENCOUNTER 2022-10-04 23:23 | Emergency (ER) | payer MEDICAID, OTHER ==
[2022-10-05] MEDS ORDERED: Ketorolac Tromethamine 30 MG/ML VIAL ONE (02:50)
== END 2022-10-05 04:29 | disposition home or self-care (01) ==
LOC: ERS 23:23
DX: G62.9 Polyneuropathy, unspecified (principal); I10 Essential (primary) hypertension; Z79.899 Other long term (current) drug therapy
CPT/HCPCS: 72100; 93005; 96372; J1885

== ENCOUNTER 2023-06-06 14:32 | Emergency (ER) | payer OTHER ==
[2023-06-06 16:04] LABS: #Basophils 0.1 thou/uL (0.0-0.2); #Eosinphils 0.5 thou/uL (0.0-0.7); #Monocytes 0.8 thou/uL (0.11-0.59); #Neutrophils 6.7 thou/uL (1.40-6.50); %Basophils 0.8 % (0.0-1.0); %Eosinophils 4.9 % (0.0-10.0); Hematocrit 36.8 % (36.0-47.0); Hemoglobin 11.8 g/dL (12.0-16.0); Mean Corpuscular HGB CONC 32.1 g/dL (32.0-36.0); Mean Corpuscular Hemoglobin 28.9 pg (27.0-31.0); Mean Corpuscular Volume 90.2 fl (78.0-98.0); Mean Platelet Volume 11.3 fL (7.4-10.4); Platelet Count 272 10x3/uL (130-400); RBC Distribution Width 14.4 % (11.5-14.5); Red Blood Cell (RBC) Count 4.08 mill/uL (4.20-5.40); White Blood Cell (WBC) Count 9.8 10x3/uL (4.8-10.8)
[2023-06-06 16:19] LABS: Bacteria/HPF None Seen HPF (None Seen); Bilirubin Negative (Negative); Blood, Urine Negative (Negative); CAUTI Indications for Culture Alt mental st,lethar; Clarity Clear (Clear); Glucose, Urine (Dipstick) Normal (Negative); Ketone, Urine Negative (Negative); Leukocyte Negative Leu/uL (Negative); Nitrite Negative (Negative); Protein, Urine (Dipstick) Negative (Neg-Trace); RBC/HPF 0-3 HPF (0-3); Specific Gravity, Urine 1.017 (1.002-1.036); Squamous Epithelial None Seen HPF (0-3); Urobilinogen Normal mg/dL (Less than 2); WBC/HPF 0-3 HPF (0-3)
[2023-06-06 16:20] LABS: Urine Culture Reflex No No
[2023-06-06 16:25] LABS: ALT (SGPT) 7 U/L (8-55); AST (SGOT) 14 U/L (5-34); Albumin 4.7 g/dL (3.4-4.8); Alkaline Phosphatase 87 U/L (40-110); Anion Gap 16 mmol/L (10-20); BUN (Urea Nitrogen) 24 mg/dL (9.8-20.1); Bilirubin, Total 0.5 mg/dL (0.2-1.2); Calc. Creatinine Clearance 0 mL/min (70-130); Calcium 9.4 mg/dL (7.8-10.44); Carbon Dioxide 23 mmol/L (23-31); Chloride 106 mmol/L (98-107); Estimated GFR 36; Globulin 2.2 g/dL (2.4-3.5); Glucose 109 mg/dL (83-110); Potassium 4.3 mmol/L (3.5-5.1); Protein, Total 6.9 g/dL (5.8-8.1); Sodium 141 mmol/L (136-145)
[2023-06-06 16:30] LABS: Troponin I 0.011 ng/mL (< 0.028)
== END 2023-06-06 18:25 | disposition home or self-care (01) ==
LOC: ERS 14:32
DX: M79.10 Myalgia, unspecified site (principal); R25.2 Cramp and spasm; I10 Essential (primary) hypertension; E03.9 Hypothyroidism, unspecified; E78.00 Pure hypercholesterolemia, unspecified; Z79.899 Other long term (current) drug therapy
CPT/HCPCS: 36415; 71045; 80053; 81001; 83880; 84484; 85025; 93005

== ENCOUNTER 2023-12-12 14:33 | Emergency (ER) | payer OTHER | END 2023-12-12 15:39 | disposition home or self-care (01) | LOC: ERS 14:33 | DX: M54.50 Low back pain, unspecified (principal); N39.0 Urinary tract infection, site not specified; I10 Essential (primary) hypertension; E78.00 Pure hypercholesterolemia, unspecified; E03.9 Hypothyroidism, unspecified; Z79.899 Other long term (current) drug therapy | CPT/HCPCS: 99282 ==

== ENCOUNTER 2024-08-20 12:43 | Emergency (ER) | payer OTHER ==
[~2024-08-20 12:43] MED LIST: Iopamidol-370 76% 500 ML MDV (1 ML CHARGE) ONE
[2024-08-20 13:33] LABS: #Basophils 0.09 10x3/uL (0.0-0.2); %Basophils 0.9 % (0.0-1.0); %Eosinophils 3.5 % (0.0-10.0); %Lymphocytes 16.2 % (21.0-51.0); %Monocytes 8.8 % (0.0-10.0); %Neutrophils 70.3 % (42.0-75.0); Hemoglobin 10.7 g/dL (12.0-16.0); Mean Corpuscular HGB CONC 31.5 g/dL (32.0-36.0); Mean Platelet Volume 11.2 fL (7.4-10.4); Platelet Count 206 10x3/uL (130-400); RBC Distribution Width 14.6 % (11.5-14.5); Red Blood Cell (RBC) Count 3.82 mill/uL (4.20-5.40)
[2024-08-20 13:57] LABS: ALT (SGPT) 6 U/L (8-55); AST (SGOT) 12 U/L (5-34); Albumin 3.5 g/dL (3.4-4.8); Alkaline Phosphatase 96 U/L (40-110); Anion Gap 12 mmol/L (10-20); BUN (Urea Nitrogen) 22 mg/dL (9.8-20.1); Bilirubin, Total 0.6 mg/dL (0.2-1.2); Calc. Creatinine Clearance 0 mL/min (70-130); Calcium 8.5 mg/dL (7.8-10.44); Carbon Dioxide 25 mmol/L (23-31); Chloride 105 mmol/L (98-107); Estimated GFR 40; Globulin 3.2 g/dL (2.4-3.5); Glucose 83 mg/dL (83-110); Lipase 18 U/L (8-78); Potassium 4.4 mmol/L (3.5-5.1); Protein, Total 6.7 g/dL (5.8-8.1); Sodium 138 mmol/L (136-145)
[2024-08-20] MEDS ORDERED: fentaNYL 50 mcg/mL 1 mL Vial ONE (14:19)
[2024-08-20 14:40] LABS: Bacteria/HPF None Seen HPF (None Seen); Bilirubin Negative (Negative); Blood, Urine Negative (Negative); CAUTI Indications for Culture Pelvic or flank pain; Clarity Clear (Clear); Glucose, Urine (Dipstick) Normal (Negative); Ketone, Urine Negative (Negative); Leukocyte Negative Leu/uL (Negative); Nitrite Negative (Negative); Protein, Urine (Dipstick) Negative (Neg-Trace); RBC/HPF None Seen HPF (0-3); Squamous Epithelial 0-3 HPF (0-3); Urobilinogen Normal mg/dL (Less than 2); WBC/HPF 0-3 HPF (0-3); pH, Urine 5.5 (5.0-9.0)
[2024-08-20 14:44] LABS: Urine Culture Reflex No No
[2024-08-20] MEDS ORDERED: Dicyclomine 20 MG TAB ONE (15:30)
== END 2024-08-20 15:36 | disposition home or self-care (01) ==
LOC: ERS 12:43
DX: K57.90 Diverticulosis of intestine, part unspecified, without perforation or abscess without bleeding (principal); R10.13 Epigastric pain; R19.7 Diarrhea, unspecified; I10 Essential (primary) hypertension; E03.9 Hypothyroidism, unspecified; E78.00 Pure hypercholesterolemia, unspecified; Z79.899 Other long term (current) drug therapy; Z79.890 Hormone replacement therapy
CPT/HCPCS: 74177; 80053; 81001; 83605; 83690; 84484; 85025; J3010; 36415; 51701; 96374

== ENCOUNTER 2025-05-04 15:18 | Emergency (ER) | payer OTHER ==
[2025-05-04 16:28] LABS: #Basophils 0.08 10x3/uL (0.0-0.2); #Eosinophils 0.43 10x3/uL (0.0-0.7); #Monocytes 0.77 10x3/uL (0.11-0.59); #Neutrophils 6.83 10x3/uL (1.40-6.50); %Basophils 0.8 % (0.0-1.0); %Eosinophils 4.4 % (0.0-10.0); %Lymphocytes 17.0 % (21.0-51.0); %Monocytes 7.8 % (0.0-10.0); %Neutrophils 69.4 % (42.0-75.0); Hematocrit 31.8 % (36.0-47.0); Hemoglobin 10.1 g/dL (12.0-16.0); Mean Corpuscular Hemoglobin 27.4 pg (27.0-31.0); Mean Corpuscular Volume 86.2 fL (78.0-98.0); Platelet Count 223 10x3/uL (130-400); Red Blood Cell (RBC) Count 3.69 mill/uL (4.20-5.40); White Blood Cell (WBC) Count 9.84 10x3/uL (4.8-10.8)
[2025-05-04 16:55] LABS: ALT (SGPT) 8 U/L (Less than 34); AST (SGOT) 22 U/L (11-34); Albumin 3.6 g/dL (3.1-4.5); Alkaline Phosphatase 92 U/L (40-110); Anion Gap 13 mmol/L (10-20); BUN (Urea Nitrogen) 17 mg/dL (9.8-20.1); Bilirubin, Total 0.4 mg/dL (0.3-1.2); Calc. Creatinine Clearance 0 mL/min (70-130); Calcium 8.7 mg/dL (7.8-10.44); Carbon Dioxide 21 mmol/L (23-31); Chloride 108 mmol/L (98-107); Globulin 3.1 g/dL (2.4-3.5); Glucose 82 mg/dL (83-110); Potassium 4.5 mmol/L (3.5-5.1); Sodium 137 mmol/L (136-145)
[2025-05-04] MEDS ORDERED: Furosemide 40 MG (4 mL) VIAL ONE (19:07)
== END 2025-05-04 19:50 | disposition home or self-care (01) ==
LOC: ERS 15:18
DX: E87.70 Fluid overload, unspecified (principal); I10 Essential (primary) hypertension; E78.00 Pure hypercholesterolemia, unspecified; E03.9 Hypothyroidism, unspecified; Z79.899 Other long term (current) drug therapy; Z79.890 Hormone replacement therapy
CPT/HCPCS: 71045; 80053; 83880; 84484; 85025; 93005; 96374; J1940